=== PATIENT | female | born 1975 | race Caucasian/White ===

== ENCOUNTER 2020-02-23 19:47 | Emergency (ER) | payer BC, OTHER ==
[~2020-02-23] VITALS: Ht 149.9 cm; Wt 57.6 kg
[2020-02-23] MEDS ORDERED: ACETAMINOPHEN 325 MG TAB ONE (20:01)
[2020-02-23] MEDS ORDERED: LEVOFLOXACIN 750MG/D5W 150ML 150 ML IV STA (20:05)
[2020-02-23] MEDS ORDERED: SODIUM CHLORIDE 0.9% 1000ML 1,000 ML IV STA (20:13)
[2020-02-23] MEDS ORDERED: ACETAMINOPHEN 325 MG TAB PO ONE (20:15)
[2020-02-23 20:25] LABS: STREPTOCOCCUS GRP A ANTIGEN NEGATIVE (NEGATIVE)
[2020-02-23 20:29] LABS: BASOPHILS % 0.3 % (0.0-1.0); EOSINOPHILS # (AUTO) 0.2 (0.0-0.4); EOSINOPHILS % 1.4 % (0.0-6.0); HEMATOCRIT 42.4 % (34.2-44.1); HEMOGLOBIN 14.5 g/dL (12.0-16.0); LYMPHOCYTES # (AUTO) 2.2 (1.0-3.2); LYMPHOCYTES % 21.1 % (18.0-39.1); MEAN CORPUSCULAR HGB CONC 34.2 g/dL (31-35); MEAN CORPUSCULAR VOLUME 87.6 fL (81-99); MONOCYTES # (AUTO) 0.7 (0.2-0.8); MONOCYTES % 6.6 % (4.4-11.3); NEUTROPHILS # (AUTO) 7.2 (2.1-6.9); NEUTROPHILS % 69.5 % (38.7-80.0); PLATELET COUNT 247 x10e3/uL (140-360); RED BLOOD COUNT 4.84 x10e6/uL (3.6-5.1); RED CELL DISTRIBUTION WIDTH 11.6 % (11.7-14.4)
[2020-02-23 20:33] LABS: ALBUMIN 3.4 g/dL (3.5-5.0); ALBUMIN/GLOBULIN RATIO 0.9 (0.8-2.0); ANION GAP 15.4 mmol/L (8-16); CALCIUM 9.4 mg/dL (8.4-10.2); CREATININE, SERUM 1.11 mg/dL (0.57-1.11); INFLUENZAE A&B ANTIGEN (RAPID) NEGATIVE (NEGATIVE); POTASSIUM 4.4 mmol/L (3.5-5.1)
[2020-02-23 20:34] LABS: BILIRUBIN,URINE 1+ (NEGATIVE); CLARITY,URINE SL CLOUDY (CLEAR); COLOR,URINE STRAW (YELLOW); KETONES,URINE 1+ (NEGATIVE); LEUKOCYTE ESTERASE ,URINE NEGATIVE (NEGATIVE); NITRITE,URINE NEGATIVE (NEGATIVE); PROTEIN,URINE DIPSTICK NEGATIVE (NEGATIVE); URINE UROBILINOGEN 0.2 mg/dL (0.2 - 1)
[2020-02-23 20:35] LABS: PREGNANCY TEST, URINE NEGATIVE (NEGATIVE)
[2020-02-23 20:46] LABS: WBC,URINE (MAN) 0-5 /HPF (0-5)
[2020-02-23 20:47] LABS: BACTERIA,URINE MODERATE /HPF; EPITHELIAL CELLS,URINE MANY /LPF
[2020-02-23 20:53] LABS: INR 0.89; PROTHROMBIN TIME 12.6 seconds (11.9-14.5)
--- NOTE | 2020-02-23 22:24 | Diagnostic Imaging Report ---
CT chest without enhancement CPT code: 24177 INDICATION: Cough, fever, sore throat TECHNIQUE: Thin collimation axial images obtained from the thoracic inlet to the level of the diaphragm without intravenous contrast. Dose reduction techniques used: Automated exposure control, adjustment of the mAs and/or kVp according to patient size, standardized low-dose protocol, and/or iterative reconstruction technique. RADIATION DOSE: Total DLP: 362.96 mGy*cm Estimated effective dose: (DLP x 0.015 x size factor) mSv CTDIvol has been reviewed. It is below the limits set by the Radiation Protocol Committee (RPC). COMPARISON: None. CHEST FINDINGS: Lymph nodes: No enlarged axillary or supraclavicular lymph nodes. A right paratracheal lymph node measures 10 mm in AP dimension and contains calcifications. No enlarged hilar or subcarinal lymph nodes given the lack of intravenous contrast. Thyroid: Normal size. No nodule in the visualized portions. Mediastinum: The heart is normal in size. Trace pericardial effusion. The ascending aorta measures 3.3 cm. Main pulmonary artery measures 2.3 cm. Lungs: Right: Multifocal, somewhat rounded groundglass airspace opacities throughout the upper lobe, superior segment of the lower lobe, and posterior and medial aspect of the lower lobe.. Left: Multifocal, somewhat rounded groundglass airspace opacities in the inferior upper lobe and superior and mid portions of the lower lobe. Airways: Clear. Pleura: No pleural effusions or pneumothorax. No pleural thickening. ABDOMEN FINDINGS: Visualized portions of the upper abdomen demonstrate no evidence of mass or lymphadenopathy. Bones: Trace degenerative changes of the thoracic spine. IMPRESSION: 1. Multifocal bilateral ground glass opacities suggestive of atypical (viral) pneumonia. 2. Prominent right paratracheal lymph node containing multiple punctate calcifications suggestive of healed granulomatous inflammation. Signed by: Dr. India Burroughs MD on 02/23/2020 10:21 PM
[2020-02-24 00:15] VITALS: BP 107/54
== END 2020-02-24 00:30 | disposition home or self-care (01) ==
LOC: ER 19:47
DX: J04.10 Acute tracheitis without obstruction (principal); J06.9 Acute upper respiratory infection, unspecified
CPT/HCPCS: 36415; 71250; 80053; 81001; 81025; 83518; 83605; 83880; 85025; 85610; 87070; 87400; 87633; 87635; 99284; J7030